=== PATIENT | female | born 1985 | race Caucasian/White ===

== ENCOUNTER 2016-11-24 12:05 | Emergency (ER) | payer BC, OTHER ==
[~2016-11-24] VITALS: Ht 154.9 cm; Wt 49.0 kg
[~2016-11-24 12:05] MED LIST: ONDA1TAB16 PO
[2016-11-24 12:21] VITALS: BP 120/66; PULSE 86; RESP 15; TEMP 99.7; O2SAT 98
[2016-11-24] MEDS ORDERED: ALPR.25 PO (12:51)
[2016-11-24] MEDS ORDERED: NUVAMIS VAGINAL (12:51)
[2016-11-24] MEDS ORDERED: LEXA20TA PO (12:51)
[2016-11-24] MEDS ORDERED: SODIUM CHLOR 0.9% 1000 ML INJ 1,000 ML IV SCH (13:02)
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
[2016-11-24] MEDS ORDERED: ONDANSETRON HCL 4 MG/2 ML VIAL IVP ONE (13:15)
[2016-11-24] MEDS ORDERED: KETOROLAC TROMETHAMINE 30 MG/ML (IVP) VIAL IVP ONE (13:15)
[2016-11-24 13:43] LABS: BLOOD, URINE MOD (NEG); GLUCOSE,URINE NEG (NEG); KETONE, URINE 80 OR GREATER mg/dL (NEG); NITRITE,URINE NEG (NEG); PH, URINE 6.5 (5.0-8.5)
[2016-11-24 13:54] LABS: URINE COLOR YELLOW (YELLW/STRAW)
[2016-11-24 13:55] LABS: BACTERIA, URINE FEW /hpf; MUCUS URINE MANY /lpf (OCC); RBC, URINE 0-3 /hpf (0-3); WBC, URINE 0-2 /hpf (0-5)
[2016-11-24 13:56] LABS: COMMENT (UR) CULT NOT INDICATED; CULTURE IF INDICATED CULT NOT INDICATED
[2016-11-24 14:00] LABS: BASOPHIL # 0.1 TH/MM3 (0-0.2); BASOPHIL % 0.6 % (0.0-2.0); EOSINOPHIL % 0.1 % (0.0-4.0); HEMATOCRIT 42.2 % (35.0-46.0); HEMO FLAGS DIFF FINAL; LYMPHOCYTE # 1.9 TH/MM3 (1.0-4.8); MEAN CELL VOLUME 89.8 FL (80.0-100.0); MEAN CORPUSCULAR HEMOGLOBIN 30.2 PG (27.0-34.0); MEAN CORPUSCULAR HGB CONC 33.6 % (32.0-36.0); MONO % 3.6 % (0.0-8.0); NEUT % 75.7 % (16.0-70.0); PLATELET COUNT 258 TH/MM3 (150-450); RED CELL DISTRIBUTION WIDTH 11.9 % (11.6-17.2); WHITE BLOOD COUNT 9.3 TH/MM3 (4.0-11.0)
[2016-11-24 14:07] LABS: CHLORIDE 108 MEQ/L (98-107); POTASSIUM 3.5 MEQ/L (3.5-5.1); SODIUM (NA) 141 MEQ/L (136-145)
[2016-11-24 14:10] LABS: ANION GAP 11 MEQ/L (5-15); BICARBONATE 22.5 MEQ/L (21.0-32.0); BLOOD UREA NITROGEN 12 MG/DL (7-18); MAGNESIUM 2.2 MG/DL (1.5-2.5)
[2016-11-24 14:12] LABS: ALT (GPT) 37 U/L (10-53)
[2016-11-24 14:13] LABS: AST (GOT) 19 U/L (15-37); GLOMERULAR FILTRATION RATE 101 ML/MIN (>89)
[2016-11-24 14:14] LABS: TOTAL BILIRUBIN ADULT 0.6 MG/DL (0.2-1.0)
[2016-11-24 14:15] LABS: ALKALINE PHOSPHATASE 55 U/L (45-117)
[2016-11-24] MEDS ORDERED: TYLE325T PO (15:16)
[2016-11-24] MEDS ORDERED: ZOFR4TAB3 SL (15:16)
[2016-11-24 15:25] VITALS: BP 121/71; PULSE 88; RESP 14; O2SAT 98
== END 2016-11-24 15:30 | disposition home or self-care (01) ==
LOC: PHED 12:05
DX: R11.2 Nausea with vomiting, unspecified (principal); E04.9 Nontoxic goiter, unspecified; M41.9 Scoliosis, unspecified
CPT/HCPCS: 80053; 81001; 83690; 83735; 84703; 85025; 96361; 96374; 96375; 99284; J1885; J2405; J7030